=== PATIENT | female | born 1990 | race Native Hawaiian/Other Pacific Islander ===

== ENCOUNTER 2018-01-02 21:02 | Emergency (ER) | payer OTHER ==
[~2018-01-02] VITALS: Ht 157.5 cm; Wt 74.8 kg
[2018-01-02 22:11] LABS: PLATELET COUNT 216 K/uL (152-353)
[2018-01-02 22:17] LABS: POTASSIUM 3.8 mmol/L (3.6-5.2)
== END 2018-01-02 22:45 | disposition home or self-care (01) ==
LOC: ED 21:02
DX: J06.9 Acute upper respiratory infection, unspecified (principal)
CPT/HCPCS: 36415; 80053; 85027; 87081; 87804; 87880; 99283